=== PATIENT | female | born 1965 | race Caucasian/White ===

== ENCOUNTER → 2019-06-03 15:26 | Outpatient (CLI) | payer OTHER, SELFPAY ==
--- NOTE | ~2019-06-03 | XR_ITS ---
EXAMINATION: XR chest 2V DATE: 06/03/2019 15:44 INDICATION: Cough, positive COVID-19 TECHNIQUE: AP and lateral views of the chest are obtained. COMPARISON: 04/08/2011 FINDINGS: The lungs are free of acute opacities. There is no pleural effusion or pneumothorax. The ca rdiomediastinal silhouette is normal. There is mild thoracic spondylosis. Bilateral breast implants a re noted. IMPRESSION: 1. No acute cardiopulmonary abnormality. Reviewed, dictated and finalized at location A.
== END ==
PROVIDERS: PCP Family Medicine; Visit Provider Family Medicine
DX: R05 Cough (principal); U07.1 COVID-19
CPT/HCPCS: 71046

== ENCOUNTER 2019-06-30 10:38 | Outpatient (CLI) | payer OTHER, SELFPAY ==
--- NOTE | ~2019-06-30 | CT_ITS ---
EXAMINATION: CT chest wo con DATE: 06/30/2019 11:16 INDICATION: Persistent cough, recovered from COVID-19. TECHNIQUE: Computed tomography (CT) of the chest was performed without intravenous contrast. The dose -length product (DLP) was 119.78 mGy-cm. Automated exposure control and iterative reconstruction tech [employer] were employed. COMPARISON: 04/08/2011 FINDINGS: The lungs are free of acute opacities. There is no pleural effusion or pneumothorax. No pat hologically enlarged thoracic lymph nodes are identified. The heart size is normal. Calcified coronar y artery atherosclerosis is noted. There are bilateral breast implants. There is interval enlargement of a partially exophytic cyst with thin septation in the left kidney upper pole which now measures 6 .3 x 4.4 cm. The visualized osseous structures are unremarkable. IMPRESSION: 1. No CT correlate for the patient's symptoms. Reviewed, dictated and finalized at location A.
== END 2019-06-30 10:39 | disposition home or self-care (01) ==
PROVIDERS: PCP Family Medicine; Visit Provider Family Medicine
DX: R05 Cough (principal); Z86.19 Personal history of other infectious and parasitic diseases
CPT/HCPCS: 71250